=== PATIENT | female | born 1965 | race Caucasian/White ===

== ENCOUNTER 2018-03-19 23:13 | Inpatient (IN) | payer OTHER ==
[~2018-03-19] VITALS: Ht 152.4 cm; Wt 45.8 kg
[~2018-03-19 23:13] MED LIST: LATA2.5D19 OP; LORA10TA PO; PANT40TA4 PO; SULF-151 PO; VERA10 NS
[2018-03-20 01:00] VITALS: BP 116/64; PULSE 68; RESP 18
[2018-03-20 01:20] VITALS: Ht 152.4 cm; Wt 45.8 kg
[2018-03-20] MEDS ORDERED: BISACODYL (EC) 5 MG TAB PO PRN (01:30)
[2018-03-20] MEDS ORDERED: DOCUSATE SODIUM 100 MG CAP PO PRN (01:30)
[2018-03-20] MEDS ORDERED: NACL 0.9% 3 ML SYG IV SCH (01:30)
[2018-03-20] MEDS ORDERED: morphine SULFATE/PF (2 MG/2 ML) SYG IV PRN (01:30)
[2018-03-20] MEDS ORDERED: ACETAMINOPHEN 325 MG TAB PO PRN (01:30)
[2018-03-20] MEDS ORDERED: ONDANSETRON 4 MG INJ IV PRN (01:30)
[2018-03-20] MEDS ORDERED: METOCLOPRAMIDE 10 MG INJ IV PRN (01:30)
--- NOTE | 2018-03-20 01:50 | NUR ---
Admitted 52 y/o female from [facility] under Dr. Antonio with CC of N/V. Alert and oriented x4, No SOB. No resp distress. afebrile. Denies pain upon admission. Called MD and made aware of admission. Pt oriented to environment, use of call light, use of telephone and visitation policy. Skin assessment per protocol. 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 On clear liquid, diet order explained. Needs attended and anticipated. Call light within reach. Fall precaution implemented. Will continue to monitor pt.
[2018-03-20] MEDS: SOD CHLORIDE 0.9% 1,000 ML IV SCH ×3 (03:18→16:01)
[2018-03-20] MEDS ORDERED: POTASSIUM CHLORIDE (SR) 20 MEQ TAB PO STA (03:59)
[2018-03-20] MEDS ORDERED: MAGNESIUM SULFATE 1 GM/D5W 100 ML IVPB ONE (05:00)
--- NOTE | 2018-03-20 05:02 | HP ---
Date/Time of Note Date/Time of Note DATE: 03/20/18 TIME: 04:45 Assessment/Plan VTE Prophylaxis SCD applied (from Nsg): Yes Pharmacological prophylaxis: NA/contraindicated Pharm contraindication: low risk/ambulating Lines/Catheters IV Catheter Type (from Nrsg): Peripheral IV Assessment/Plan Hospital Course This is a 52 female being admitted to the [facility] floor for: #1 Intractable nausea vomiting: Gastroenteritis versus cannabis induced cyclic vomiting syndrome: Patient CT does not show any acute abnormalities, her hypokalemia has now resolved, the rest of her BMP is within normal values. At the current time will hydrate the patient with normal saline. Will give a trial of clear liquid diet. Zofran Reglan as needed. #2 hypokalemia: Secondary to gastrointestinal losses. Patient was given repletion for the transferring facility and her potassium improved. Potassium here is 3.4. Will give p.o. potassium chloride. along with 1 g of mag sulfate given that her magnesium is 1.8. #3 hypomagnesemia: Magnesium of 1.8, will give him 1 g of magnesium IV x1 #4 marijuana use: Patient reports that she last used marijuana approximately a week and a half ago. She has been smoking for approximately 3 years. Will check urine drug screen. Encourage cessation. #5 history of CVA: No residual deficits #6 history of endocarditis: No acute issues #7 right BKA: Patient uses prosthesis #8 DVT GI prophylaxis: SCDs, Protonix Further treatment strategy will be implemented as per the clinical course. Result Diagram: 03/20/18 0254 03/20/18 0254 Results 24hrs Laboratory Tests Test 03/20/18 02:54 White Blood Count 9.7 Red Blood Count 3.40 L Hemoglobin 10.7 L Hematocrit 31.3 L Mean Corpuscular Volume 92.1 Mean Corpuscular Hemoglobin 31.5 Mean Corpuscular Hemoglobin Concent 34.2 Red Cell Distribution Width 11.9 Platelet Count 265 Mean Platelet Volume 10.6 H Immature Granulocytes % 0.300 Neutrophils % 50.2 Lymphocytes % 38.6 Monocytes % 8.2 Eosinophils % 2.3 Basophils % 0.4 Nucleated Red Blood Cells % 0.0 Immature Granulocytes # 0.030 Neutrophils # 4.9 Lymphocytes # 3.7 H Monocytes # 0.8 Eosinophils # 0.2 Basophils # 0.0 Nucleated Red Blood Cells # 0.0 Sodium Level 135 Potassium Level 3.4 L Chloride Level 100 Carbon Dioxide Level 26 Anion Gap 9 Blood Urea Nitrogen 16 Creatinine 0.78 Est Glomerular Filtrat Rate mL/min > 60 Glucose Level 88 Hemoglobin A1c 5.0 Lactic Acid Level 1.5 Calcium Level 8.9 Magnesium Level 1.8 Total Bilirubin 0.5 Direct Bilirubin 0.00 Indirect Bilirubin 0.5 Aspartate Amino Transf (AST/SGOT) 19 Alanine Aminotransferase (ALT/SGPT) 17 Alkaline Phosphatase 54 Total Protein 6.1 Albumin 3.6 Globulin 2.50 Albumin/Globulin Ratio 1.44 Triglycerides Level 127 Cholesterol Level 162 LDL Cholesterol, Calculated 106 HDL Cholesterol 31 L Cholesterol/HDL Ratio 5.2 Thyroid Stimulating Hormone (TSH) 1.200 Ethyl Alcohol Level < 10.0 H HPI/ROS Admit Date/Time Admit Date/Time Mar 20, 2018 at 00:57 Hx of Present Illness Chief complaint: Nausea vomiting times 7 days This is a 52-year-old female who presented to the emergency department at [facility] complaining of nausea and vomiting times 7 days. Patient also reported that she had diarrhea on the first day and had associated abdominal vomiting and general weakness. Denies any fevers or chills. Denies any chest pain or shortness of breath. No hematemesis or black or bloody stools. No exacerbating or relieving factors. 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 Pertinent laboratory findings from the transfer facility, please see chart for full details: Sodium 134/potassium 2.9/chloride 92 Repeat sodium: 135/potassium 3.6/chloride 101 Creatinine 1.1 1 repeat 0.72 para graph lactic acid 0.7 White blood cells 11.99 AST ALT lipase within normal values CT abdomen pelvis without contrast showed: Status post cholecystectomy with dilatation of the common bile duct. Biliary stent is in place. Few renal cysts are seen Allergies: Penicillin Medications: See MAR ROS Const: As per HPI Eyes : No pain discharge or redness or change in visual acuity ENT: No pain, sore throat, congestion, congestion, dysphagia or discharge Respiratory: No shortness of breath, cough, sputum, wheezing, or pleuritic pain Cardiovascular: No chest pain, palpitation, PND, or edema GI : as per HPI Genitourinary: No dysuria, hematuria, flank pain , discharge or CVA tenderness Musculoskeletal: No joint pain, back pain, neck pain, restricted range of motion in neck or joints Skin: No rash, bruising or hives Neuro: No headache, dizziness, syncope, seizure, focal weakness Endocrine: No polyuria, polydipsia, temperature intolerance Psych: No hallucination, depression, anxiety or suicidal ideation PMH/Family/Social Past Medical History Endocarditis, CVA, cholelithiasis, endometriosis, right leg amputation Medications Current Medications Sodium Chloride 1,000 ml @ 100 mls/hr Q10H IV Last administered on 03/20/18at 03:18; Admin Dose 100 MLS/HR; Start 03/20/18 at 01:30 IV Flush (NS 3 ml) 3 ml PER PROTOCOL IV ; Start 03/20/18 at 01:30 Ondansetron HCl (Zofran Inj) 4 mg Q6H PRN IV NAUSEA AND/OR VOMITING; Start 03/20/18 at 01:30 Metoclopramide HCl (Reglan) 10 mg Q6H PRN IV NAUSEA AND/OR VOMITING; Start 03/20/18 at 01:30 Acetaminophen (Tylenol Tab) 650 mg Q6H PRN PO PAIN LEVEL 1-3 OR FEVER; Start 03/20/18 at 01:30 Morphine Sulfate (morphine SULFATE (PF)) 2 mg Q4H PRN IV SEVERE PAIN LEVEL 7- 10; Start 03/20/18 at 01:30 Docusate Sodium (Colace) 100 mg Q12H PRN PO CONSTIPATION; Start 03/20/18 at 01:30 Bisacodyl (Dulcolax) 5 mg DAILY PRN PO CONSTIPATION; Start 03/20/18 at 01:30 Loratadine (Claritin) 10 mg DAILY PO ; Start 03/20/18 at 09:00 Pantoprazole (Protonix Tab) 40 mg DAILY@0600 PO ; Start 03/20/18 at 06:00 Miscellaneous Information 10 gm DAILY NS ; Start 03/20/18 at 09:00; Status UNV Magnesium Sulfate/ Dextrose 100 ml @ 100 mls/hr ONCE ONCE IVPB ; Start 03/20/18 at 05:00; Stop 03/20/18 at 05:59 Coded Allergies: Penicillins (Verified Allergy, Unknown, 02/07/12) Past Surgical History Right BKA, Family History Significant Family History: no pertinent family hx Social History Alcohol Use: none Smoking Status: Current every day smoker Drug Use: other (History of IV drug use) Exam/Review of Systems Vital Signs Vitals Vital Signs Date Temp Pulse Resp B/P (MAP) Pulse Ox O2 O2 Flow FiO2 Time Delivery Rate 03/20/18 98.8 68 18 116/64 100 01:00 (81) Intake and Output 03/19/18 03/19/18 03/20/18 1515:00 23:00 07:00 IntakeIntake Total 60 ml BalanceBalance 60 ml Exam Exam General: Patient is well-developed well-nourished The patient is alert oriented -3 lying comfortably in bed. HEENT: Atraumatic, normocephalic. The pupils are equal, round and reactive. Extraocular motor are intact Neck: Supple with full range of motion. No rigidity or meningismus Chest: Nontender Lungs: Clear to auscultation bilaterally no crackles rales or wheezing Heart: Normal S1-S2, Regular rhythm and rate. No murmur, S3, or S4 Abdomen: Soft , nontender, nondistended , bowel sounds are present. No guarding no rebound tenderness , No masses or organomegaly. No costovertebral temporal angle mass Extremities: Normal to inspection, no edema no cyanosis Neurologic: Normal mental status, speech normal, cranial nerves II through XII are intact, motor and sensory are intact, no focal weakness ERA BACK Mar 20, 2018 04:55
--- NOTE | 2018-03-20 05:29 | NUR ---
pt's room smells different (smells like marijuana), asked pt if she smoke marijuana, pt denied, talked to pt and asked permission to check her belongings, security came and searched pt's bag/belongings, found 1 rag cutting machine feeder and 1 marijuana stick, Charge Nurse aware. rag cutting machine feeder kept at pt's chart and pt agreed to toss/discard marijuana stick. Pt very pleasant and cooperative.
[2018-03-20] MEDS: PANTOPRAZOLE (EC) 40 MG TAB PO SCH (05:55)
--- NOTE | 2018-03-20 06:21 | NUR ---
End of shift Report: Sleeping in comfortable position. No sob. No resp distress. Denies pain. On clear liquid diet.well-amaury. No episode of n/v overnight. No changes overnight. For urine collection. specimen bottle at pt's bedside. Pt aware of urine collection. Needs attended and anticipated. Fall precaution implemented. Call light within reach. Will endorse accordingly.
[2018-03-20 08:00] VITALS: BP 126/62; PULSE 64; RESP 16
[2018-03-20] MEDS: LORATADINE 10 MG TAB PO SCH (09:00)
--- NOTE | 2018-03-20 10:50 | NUR ---
SS Note: AHCD/Initial Visit SW received notification pt interested in more information regarding AHCD. The patient is a 52-year-old female transfer from [facility] due to intractable nausea vomiting. SW met with pt at bedside to complete psychosocial assessment and provide AHCD information. Pt awake, alert, and oriented x4. Pt was very pleasant and cooperative. Pt reported she is single and has one son, but they have no contact. Pt verbally appointed her significant other, Landry Verma , as surrogate decision maker/spokesperson. Pt confirmed address on facesheet and stated she lives alone in a first floor apartment with no stairs. Pt requires some assistance with ADL's and has an [facility] caregiver who assists pt daily for 3 hours. Pt ambulates independently with a prosthetic leg. Pt has [employer] insurance and stated she has a PCP. Pt reported hx of depression 6 years ago after leg amputation but stated it was resolved. Pt reported actively smoking marijuana. Pt reported hx of heroin abuse but quit 10 years ago. 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 SW provided support and reassurance. SW discussed and provided education about completing and facilitating the AHCD. Pt was provided with AHCD form for her completion. No AHCD f/u requested. SW remains available for f/u as needed.
[2018-03-20 14:42] VITALS: BP 119/67; PULSE 68; RESP 16
[2018-03-20] MEDS: FLUTICASONE 0.05% 16 GM NAS SPRAY NASAL SCH (15:58)
--- NOTE | 2018-03-20 16:06 | PN ---
Date/Time of Note Date/Time of Note DATE: 03/20/18 TIME: 16:04 Assessment/Plan VTE Prophylaxis Risk score (from Ns)>0 risk: 2 SCD applied (from [facility]): No SCD contraindicated: low risk/ambulating Pharmacological prophylaxis: NA/contraindicated Pharm contraindication: low risk/ambulating Lines/Catheters IV Catheter Type (from [facility]): Peripheral IV Assessment/Plan Hospital Course Assessment and plan 1. Abdominal pain nausea vomiting, possible gastroenteritis versus cyclic vomiting syndrome. Stable continue supportive care 2. Marijuana abuse? 3. Right AKA status 4. History of endocarditis 5. History of stroke 6. History of oophorectomy; cholecystectomy . Anemia stable observe Subjective No further nausea vomiting. No abdominal pain fever Injected: Vital signs stable Physical exam No pallor icterus adenopathy Regular no murmur gallop Clear Bs+ nt nd no rigidity rebound guarding; scars C/D/I No edema Result Diagram: 03/20/18 0254 03/20/18 0254 Results 24hrs Laboratory Tests Test 03/20/18 02:54 03/20/18 10:02 White Blood Count 9.7 Red Blood Count 3.40 L Hemoglobin 10.7 L Hematocrit 31.3 L Mean Corpuscular Volume 92.1 Mean Corpuscular Hemoglobin 31.5 Mean Corpuscular Hemoglobin Concent 34.2 Red Cell Distribution Width 11.9 Platelet Count 265 Mean Platelet Volume 10.6 H Immature Granulocytes % 0.300 Neutrophils % 50.2 Lymphocytes % 38.6 Monocytes % 8.2 Eosinophils % 2.3 Basophils % 0.4 Nucleated Red Blood Cells % 0.0 Immature Granulocytes # 0.030 Neutrophils # 4.9 Lymphocytes # 3.7 H Monocytes # 0.8 Eosinophils # 0.2 Basophils # 0.0 Nucleated Red Blood Cells # 0.0 Sodium Level 135 Potassium Level 3.4 L Chloride Level 100 Carbon Dioxide Level 26 Anion Gap 9 Blood Urea Nitrogen 16 Creatinine 0.78 Est Glomerular Filtrat Rate mL/min > 60 Glucose Level 88 Hemoglobin A1c 5.0 Lactic Acid Level 1.5 Calcium Level 8.9 Magnesium Level 1.8 Total Bilirubin 0.5 Direct Bilirubin 0.00 Indirect Bilirubin 0.5 Aspartate Amino Transf (AST/SGOT) 19 Alanine Aminotransferase (ALT/SGPT) 17 Alkaline Phosphatase 54 Total Protein 6.1 Albumin 3.6 Globulin 2.50 Albumin/Globulin Ratio 1.44 Triglycerides Level 127 Cholesterol Level 162 LDL Cholesterol, Calculated 106 HDL Cholesterol 31 L Cholesterol/HDL Ratio 5.2 Thyroid Stimulating Hormone (TSH) 1.200 Ethyl Alcohol Level < 10.0 H Urine Opiates Screen NEGATIVE Urine Barbiturates NEGATIVE Urine Amphetamines Screen NEGATIVE Urine Benzodiazepines Screen NEGATIVE Urine Cocaine Screen NEGATIVE Urine Cannabinoids POSITIVE Exam/Review of Systems Vital Signs Vitals Vital Signs Date Temp Pulse Resp B/P (MAP) Pulse Ox O2 O2 Flow FiO2 Time Delivery Rate 03/20/18 98.1 68 16 119/67 99 14:42 (84) Intake and Output 03/19/18 03/19/18 03/20/18 1414:59 22:59 06:59 IntakeIntake Total 460 ml BalanceBalance 460 ml Medications Medications Current Medications Sodium Chloride 1,000 ml @ 100 mls/hr Q10H IV Last administered on 03/20/18at 16:01; Admin Dose 100 MLS/HR; Start 03/20/18 at 01:30 IV Flush (NS 3 ml) 3 ml PER PROTOCOL IV ; Start 03/20/18 at 01:30 Ondansetron HCl (Zofran Inj) 4 mg Q6H PRN IV NAUSEA AND/OR VOMITING; Start 03/20/18 at 01:30 Metoclopramide HCl (Reglan) 10 mg Q6H PRN IV NAUSEA AND/OR VOMITING; Start 03/20/18 at 01:30 Acetaminophen (Tylenol Tab) 650 mg Q6H PRN PO PAIN LEVEL 1-3 OR FEVER; Start 03/20/18 at 01:30 Morphine Sulfate (morphine SULFATE (PF)) 2 mg Q4H PRN IV SEVERE PAIN LEVEL 7- 10; Start 03/20/18 at 01:30 Docusate Sodium (Colace) 100 mg Q12H PRN PO CONSTIPATION; Start 03/20/18 at 01:30 Bisacodyl (Dulcolax) 5 mg DAILY PRN PO CONSTIPATION; Start 03/20/18 at 01:30 Loratadine (Claritin) 10 mg DAILY PO ; Start 03/20/18 at 09:00 Pantoprazole (Protonix Tab) 40 mg DAILY@0600 PO Last administered on 03/20/18at 05:55; Admin Dose 40 MG; Start 03/20/18 at 06:00 Fluticasone Propionate (Flonase 0.05% Nasal) 1 spray DAILY NASAL Last administered on 03/20/18at 15:58; Admin Dose 1 SPRAY; Start 03/20/18 at 14:30 BLADIMIR OWEN MD Mar 20, 2018 16:06
--- NOTE | 2018-03-20 16:25 | NUR ---
Awake, alert and oriented, respirations even and non labored. No c/o pain or discomfort. No nausea or vomiting. Tolerating clear liquid diet. Patient reminded on hospital's smoking policy. No falls or injury noted, safety precautions in place at all times.
[2018-03-20 20:00] VITALS: BP 122/73; PULSE 66; RESP 18
[2018-03-21 02:00] VITALS: BP 145/76; PULSE 64; RESP 18
[2018-03-21] MEDS: SOD CHLORIDE 0.9% 1,000 ML IV SCH (02:07)
[2018-03-21] MEDS: PANTOPRAZOLE (EC) 40 MG TAB PO SCH (06:31)
--- NOTE | 2018-03-21 07:00 | NUR ---
Pt on bed in comfortable position. NO sob. NO resp distress. Afebrile. Denies pain/discomfort. No episode of N/V overnight. diet well-amaury. No acute events overnight. For possible DC in am. Needs attended and anticipated. Fall precaution implemented. Call light within reach. Will continue to monitor pt. Will endorse accordingly
[2018-03-21 08:02] VITALS: BP 120/52; PULSE 54; RESP 16
[2018-03-21] MEDS: LORATADINE 10 MG TAB PO SCH (09:18)
[2018-03-21] MEDS: FLUTICASONE 0.05% 16 GM NAS SPRAY NASAL SCH (09:18)
[2018-03-21] MEDS ORDERED: POTASSIUM CHLORIDE (SR) 20 MEQ TAB PO STA (11:51)
--- NOTE | 2018-03-21 12:06 | DS ---
Date/Time of Note Date/Time of Note DATE: 03/21/18 TIME: 12:00 Discharge Summary Admission/Discharge Info Admit Date/Time Mar 20, 2018 at 00:57 Discharge Date/Time Discharge Diagnosis 1. Acute gastroenteritis, improved, follow up with PCP 2. Marijuana abuse 3. Right AKA status, stable 4. History of endocarditis 5. History of stroke, stable 6. s/p cholecystectomy with CBD stent in [facility] in 07/2017, follow up with GI for stent removal 7. Normocytic anemia, follow up with PCP 8. Hypokalemia, supplement given Patient Condition: Stable Hospital Course This is a 52-year-old female who presented to the emergency department at [facility] complaining of nausea and vomiting times 7 days. Patient also reported that she had diarrhea on the first day and had associated abdominal vomiting and general weakness. Denies any fevers or chills. Denies any chest pain or shortness of breath. No hematemesis or black or bloody stools. No exacerbating or relieving factors. 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 AST ALT lipase within normal values, CT abdomen pelvis without contrast showed: Status post cholecystectomy with dilatation of the common bile duct. Biliary stent is in place. Few renal cysts are seen. Patient is treated with supportive care with IVF and protonix, reglan prn. Symptoms resolved. She is instructed to follow up with PCP and she also needs to see her GI for CBD stent removal. Home Meds Reported Medications Loratadine (Loratadine) 10 Mg Tablet, 10 MG PO DAILY 02/07/12 Pantoprazole* (Pantoprazole*) 40 Mg Tablet.dr, 40 MG PO DAILY 02/07/12 Latanoprost (Xalatan) 2.5 Ml Drops, 2.5 ML OP DAILY 02/07/12 Fluticasone Furoate* (Veramyst* Nasal) 10 Gm Sargent.susp, 10 GM NS DAILY 02/07/12 Discontinued Reported Medications Sulfamethoxazole/Trimethoprim (Sulfamethoxazole Tmp Ds Tab) 1 Tab Tablet, 1 TAB PO BID 02/07/12 Follow-up Plan PCP in one week GI in one week for CBD stent removal Primary Care Provider Care Physician No Primary PHILIP ZAVALA MD Mar 21, 2018 12:06
--- NOTE | 2018-03-21 14:10 | NUR ---
Pt. is alert, awake and verbally responsive. Respiration are even and non labored. No acute distress or discomfort noted. Discharge patient with all of her belongings. Stable condition. Assisted the patient in lobby with 2 volunteers.
== END 2018-03-21 14:15 | disposition home or self-care (01) | DRG 392 ==
LOC: UNDOADMIN 03-20 00:57 → 5EC 03-20 00:57 → PP2 03-20 00:57
PROVIDERS: ADMIT Family Medicine; ATTEND Family Medicine
DX: K52.9 Noninfective gastroenteritis and colitis, unspecified (principal); F12.10 Cannabis abuse, uncomplicated; D64.9 Anemia, unspecified; E87.6 Hypokalemia; F17.200 Nicotine dependence, unspecified, uncomplicated; Z86.73 Personal history of transient ischemic attack (TIA), and cerebral infarction without residual deficits; Z89.611 Acquired absence of right leg above knee
CPT/HCPCS: 80053; 80061; 80307; 83036; 83605; 83735; 84443; 85025; J3475; J7030